=== PATIENT | female | born 1960 | race Caucasian/White ===

== ENCOUNTER 2016-05-09 13:43 | Emergency (ER) | payer OTHER ==
[~2016-05-09] VITALS: Ht 154.9 cm; Wt 93.5 kg
[2016-05-09 13:50] VITALS: Ht 154.9 cm; Wt 93.5 kg
[2016-05-09] MEDS ORDERED: DIPHTH/TET/ACEL PERTUSS (ADULT) 0.5 ML VIAL ONE (15:24)
[2016-05-09] MEDS ORDERED: DIPHTH/TET/ACEL PERTUSS (ADULT) 0.5 ML VIAL IM* ONE (15:30)
[2016-05-09] MEDS ORDERED: IBUP-1542 PO (15:34)
[2016-05-09] MEDS ORDERED: IBUPROFEN 600 MG TAB ONE (15:36)
--- NOTE | 2016-05-09 15:38 | ERD ---
ER Documentation Chief Complaint Date/Time DATE: 05/09/16 TIME: 15:36 Chief Complaint LT 2ND FINGER LACERATION WHILE GARDENING YESTERDAY. HPI This 55-year-old female complains of a laceration on her left index finger sustained yesterday while gardening. She is concerned because is still bleeding she is worried if she has a history of diabetes. She has no restricted range of motion or weakness and a tetanus is not up-to-date. ROS All systems reviewed and are negative except as per history of present illness. Medications Home Meds Active Scripts Ibuprofen* (Motrin*) 600 Mg Tab, 600 MG PO Q6, #15 TAB Prov:SCOTT BEJARANO MD 05/09/16 PMhx/Soc Hx Alcohol Use: No Hx Substance Use: No Hx Tobacco Use: No Physical Exam Vitals Vital Signs Date Time Temp Pulse Resp B/P Pulse Ox O2 Delivery O2 Flow Rate FiO2 05/09/16 13:50 97.5 99 18 132/75 100 Physical Exam Const: [] Alert, [id number] per Head: Atraumatic Eyes: Normal Conjunctiva ENT: Normal External Ears, Nose and Mouth. Neck: Full range of motion..~ No meningismus. Resp: Clear to auscultation bilaterally Cardio: Regular rate and rhythm, no murmurs Abd: Soft, non tender, non distended. Normal bowel sounds Skin: No petechiae or rashes. There is approximately 1 cm skin avulsion the lateral aspect of the left index finger. There is no appreciable restricted range of motion weakness or signs of tendon or neurologic deficit. Tiny punctate capillary dried blood but no active bleeding. There is no warmth, erythema or induration. Back: No midline or flank tenderness Ext: No cyanosis, or edema Neur: Awake and alert Psych: Normal Mood and Affect Results 24 hrs Current Medications Medications (Trade) Dose Ordered Sig/Silverio Route PRN Reason Start Time Stop Time Status Last Admin Dose Admin Diphtheria/ Tetanus/Acell Pertussis (Adacel) 0.5 ml ONCE ONCE IM* 05/09/16 15:30 05/09/16 15:31 DC 05/09/16 15:28 Ibuprofen (Motrin) 600 mg ONCE ONCE PO 05/09/16 16:00 05/09/16 16:01 Procedures/MDM Wound was cleansed and dressed with Surgicel and compression. Patient has a superficial laceration without evidence of infection, tendon or neurologic deficit no signs or symptoms to suggest tenosynovitis, osteomyelitis, secondary infection or cellulitis or fracture dislocation or foreign body. The skin avulsion is not amenable to suturing. Patient was discharged home with a prescription of ibuprofen and instructions for wound check in 2-3 days. Patient was given a tetanus booster Departure Diagnosis: Primary Impression: Avulsion of skin of finger Encounter type: initial encounter Qualified Code: S61.209A - Avulsion of skin of finger, initial encounter Condition: Stable Patient Instructions: Laceration, Small/Superficial, Not Sutured Additional Instructions: clint mcleodro veandra en 2-3 horton para infeccion. SCOTT BEJARANO MD May 09, 2016 15:37
[2016-05-09] MEDS ORDERED: IBUPROFEN 600 MG TAB PO ONE (16:00)
== END 2016-05-09 16:04 | disposition home or self-care (01) ==
LOC: FTE 13:43
DX: S61.201A Unspecified open wound of left index finger without damage to nail, initial encounter (principal); E11.9 Type 2 diabetes mellitus without complications; W26.0XXA Contact with knife, initial encounter; Y92.007 Garden or yard of unspecified non-institutional (private) residence as the place of occurrence of the external cause; Z23 Encounter for immunization
CPT/HCPCS: 90471; Z7502; 90715

== ENCOUNTER 2016-05-11 15:26 | Emergency (ER) | payer OTHER ==
[~2016-05-11] VITALS: Ht 157.5 cm; Wt 94.0 kg
[~2016-05-11 15:26] MED LIST: IBUP-1542 PO
[2016-05-11 16:30] VITALS: Ht 157.5 cm; Wt 94.0 kg
--- NOTE | 2016-05-11 16:52 | ERD ---
ER Documentation Chief Complaint Date/Time DATE: 05/11/16 TIME: 16:46 Chief Complaint HAS LEFT INDEX FINGER RECHECK FOR STITCHES HPI The patient is a 55-year-old female here for a wound check for skin avulsion on her left index finger. She injured it 2 days ago (on 05/09/16) when she was peeling vegetables and she cut it on a vegetable ramón. Denies any signs of infection including, but not limited to redness, swelling, drainage, purulence, bleeding, decreased range of motion, numbness or tingling, fever, chills, nausea , vomiting, diarrhea, or any other symptoms. She has been keeping the area clean and dry. ROS All systems reviewed and are negative except as per history of present illness. Medications Home Meds Active Scripts Ibuprofen* (Motrin*) 600 Mg Tab, 600 MG PO Q6, #15 TAB Prov:SCOTT BEJARANO MD 05/09/16 Allergies Allergies: Coded Allergies: No Known Allergy (Unverified , 05/11/16) PMhx/Soc Hx Alcohol Use: No Hx Substance Use: No Hx Tobacco Use: No Physical Exam Vitals Vital Signs Date Time Temp Pulse Resp B/P Pulse Ox O2 Delivery O2 Flow Rate FiO2 05/11/16 16:30 98.5 93 18 128/66 100 Physical Exam Const: No acute distress, nontoxic-appearing Vital signs: Reviewed by me, afebrile, no tachycardia Head: Atraumatic Eyes: Normal Conjunctiva ENT: Normal External Ears, Nose and Mouth. Neck: Full range of motion..~ No meningismus. Resp: Clear to auscultation bilaterally Cardio: Regular rate and rhythm, no murmurs Abd: Soft, non tender, non distended. Normal bowel sounds Skin: No petechiae or rashes Back: No midline or flank tenderness Ext: + Approximate 1 cm oval, superficial skin avulsion to the left index finger. No surrounding erythema, no bleeding, no bruising, no purulence, no hotness to touch. No tracking. Full range of motion. No swelling or edema. Sensation intact. Strength 5/5. Radial pulses +2. Neur: Awake and alert Psych: Normal Mood and Affect Procedures/MDM Nursing Notes Reviewed Previous Medical Records requested via [employer]. EMERGENCY DEPARTMENT COURSE / MEDICAL DECISION MAKING: The patient comes to the ED secondary to wound check, approximately 1 cm skin avulsion to the left index finger. Differential diagnosis upon initial evaluation includes but is not limited to: Tendon injury, joint injury, septic joint, foreign body, cellulitis, tenosynovitis, and others. The patient is afebrile, no tachycardia, no flulike symptoms, no surrounding erythema, no purulence, no swelling, no decrease in range of motion or sensation , no tracking, or no other signs or symptoms of infection at this time. Given this, I have low suspicion for tendon injury, joint injury, septic joint, foreign body, cellulitis, tenosynovitis, or other infection. Final impression: 1. Skin avulsion 2. Normal wound check The area was cleansed with normal saline and and non-adherent dressing was applied and wrapped with Kerlix and secured with tape. Patient was neurovascularly intact after the dressing and application. She stated that the dressing was comfortable with good fit. Based on patient's history of present illness and physical examination the decision was made to discharge. There is no evidence of life threatening injuries or illnesses at this time. On re-examination, patient resting in no distress, and reports feeling safe for discharge with outpatient follow up for another recheck in 2-3 days. She can have this rechecked with her primary care provider or she can return here. Patient given return precautions. She can continue to take ibuprofen that was prescribed on her last visit for pain or discomfort. She was instructed that she may get her wound check here or with her primary care provider. She verbalized understanding and agreed and will return in 2-3 days for a wound check. In the meantime, she will keep the area clean and dry. She will monitor the area for signs of infection and return immediately if she notices any redness, swelling, decreased range of motion, increased pain, bleeding, purulence, tracking, fever, chills, nausea, vomiting, diarrhea, or any other symptoms. VASYL MILIAN NP May 11, 2016 16:52
== END 2016-05-11 17:01 | disposition home or self-care (01) ==
LOC: FTE 15:26 → E/R 17:01
DX: Z48.01 Encounter for change or removal of surgical wound dressing (principal); E11.9 Type 2 diabetes mellitus without complications
CPT/HCPCS: 99281

== ENCOUNTER 2017-09-27 07:56 | Day surgery (SDC) | END 2017-09-27 13:00 | disposition home or self-care (01) ==